=== PATIENT | female | born 1965 | race Caucasian/White ===

== ENCOUNTER 2020-08-08 11:55 | Emergency (ER) | payer MEDICARE, MEDICAID ==
[2020-08-10 08:39] LABS: SARS-CoV-2 PCR by NAA Not Detected (NotDetected)
== END 2020-08-08 12:50 | disposition home or self-care (01) ==
LOC: NAV ERS 11:55
DX: B34.9 Viral infection, unspecified (principal); Z20.822 Contact with and (suspected) exposure to COVID-19; F17.210 Nicotine dependence, cigarettes, uncomplicated; Z87.01 Personal history of pneumonia (recurrent); Z79.899 Other long term (current) drug therapy
CPT/HCPCS: U0003; U0005; 87635; 99283